=== PATIENT | female | born 1990 | race Caucasian/White ===

== ENCOUNTER 2017-06-22 15:07 | Emergency (ER) | payer MEDICAID ==
[2017-06-22] MEDS ORDERED: NS 1,000 ML IV ONE (15:40)
[2017-06-22] MEDS ORDERED: ONDANSETRON DISINTEGRATING 4 MG TAB PO ONE (15:40)
--- NOTE | 2017-06-22 15:44 | EDPHY ---
H & P Time Seen by Provider: 06/22/17 15:08 HPI/ROS: CHIEF COMPLAINT: Nausea, vomiting, body aches. HISTORY OF PRESENT ILLNESS: Patient states she was fine on Friday and then Friday morning woke up feeling bad. She was nauseous and achy and slept most of the day. This morning she woke up and had 4-5 episodes of vomiting over the course of the morning. Continued nausea and achiness. No further vomiting. Some headache, some chills but no fever. Still tired. No diarrhea, no dysuria. Last menstrual period was mid May. Also complaining of achiness to the low back bilaterally. No rashes. No upper respiratory symptoms. REVIEW OF SYSTEMS: Contents of 10 point review of systems otherwise negative except for what is mentioned in HPI. General Appearance: Alert, no distress. Eyes: Pupils equal and round no pallor or injection. ENT, Mouth: Mucous membranes moist. Oropharynx clear. No lymphadenopathy. Respiratory: There are no retractions, lungs are clear to auscultation. Cardiovascular: Regular rate and rhythm. Gastrointestinal: Abdomen is soft and nontender, no masses, bowel sounds hypoactive. No CVA tenderness. Neurological: Awake alert no focal neurologic deficits. Skin: Warm and dry, no rashes. Musculoskeletal: Neck is supple nontender. Extremities are symmetrical, full range of motion, no edema. Psychiatric: Patient is oriented X 3, emotional, labile, tearful at times. Medical/surgical history: History of PTSD. Melanoma, skin, excised. 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 Smoking Status: Never smoked Constitutional: Initial Vital Signs Temperature (C) 36.8 C 06/22/17 15:11 Heart Rate 65 06/22/17 15:11 Respiratory Rate 14 06/22/17 15:11 Blood Pressure 128/67 H 06/22/17 15:11 O2 Sat (%) 95 06/22/17 15:11 O2 Delivery Mode Room Air Allergies/Adverse Reactions: acetaminophen Allergy (Verified 06/22/17 15:18) Penicillins Allergy (Verified 06/22/17 15:18) Home Medications: Medication Instructions Recorded Ondansetron [Zofran Odt] 4 mg PO Q6-8PRN PRN 7 Days #10 06/22/17 tab.rapdis Zoloft 50mg (*) 06/22/17 traZODone 06/22/17 Medical Decision Making ED Course/Re-evaluation: IV fluids almost complete. Patient feeling better, trying p.o.'s. Able to give urine sample. Chemistry and CBC within normal limits. Differential Diagnosis: Differential diagnosis includes but is not limited to gastroenteritis, cyclic vomiting, urinary tract infection, acute abdomen. After evaluation suspect her nausea and vomiting may be related to exacerbation of her PTSD although viral gastroenteritis is also a possibility. Benign abdominal exam with no signs of peritonitis, surgical abdomen. Laboratory evaluations within normal limits. Not nor evidence of UTI, STD, torsion. Discussed oral rehydration therapy at home. Patient does have therapist to deal with her PTSD issues and declining other evaluation in the emergency department. Stable for discharge. - Data Points Laboratory Results: Laboratory Results 06/22/17 15:55 06/22/17 15:55 06/22/17 06/22/17 06/22/17 15:59 15:59 15:55 WBC RBC Hgb Hct MCV MCH MCHC RDW Plt Count MPV Neut % (Auto) Lymph % (Auto) [place] % (Auto) Eos % (Auto) Baso % (Auto) Nucleat RBC Rel Count Absolute Neuts (auto) Absolute Lymphs (auto) Absolute Monos (auto) Absolute Eos (auto) Absolute Basos (auto) Absolute Nucleated RBC Immature Gran % Immature Gran # Sodium 137 mEq/L mEq/L (135-145) Potassium 3.6 mEq/L mEq/L (3.5-5.2) Chloride 102 mEq/L mEq/L (97-110) Carbon Dioxide 24 mEq/l mEq/l (22-31) Anion Gap 11 mEq/L mEq/L (8-16) BUN 7 mg/dL mg/dL (7-23) Creatinine 0.8 mg/dL mg/dL (0.6-1.0) Estimated GFR > 60 Glucose 101 mg/dL H mg/dL (70-100) Calcium 9.5 mg/dL mg/dL (8.5-10.4) Urine Color YELLOW Urine Appearance CLEAR Urine pH 7.0 (5.0-7.5) Ur Specific [place] <= 1.005 (1.002-1.030) Urine Protein NEGATIVE (NEGATIVE) Urine Ketones NEGATIVE (NEGATIVE) Urine Blood NEGATIVE (NEGATIVE) Urine Nitrate NEGATIVE (NEGATIVE) Urine Bilirubin NEGATIVE (NEGATIVE) Urine Urobilinogen 0.2 EU EU (0.2-1.0) Ur Leukocyte Esterase NEGATIVE (NEGATIVE) Urine Glucose NEGATIVE (NEGATIVE) Urine Test NEGATIVE 06/22/17 15:55 WBC 5.66 10^3/uL 10^3/uL (3.80-9.50) RBC 4.87 10^6/uL 10^6/uL (4.18-5.33) Hgb 13.2 g/dL g/dL (12.6-16.3) Hct 39.1 % % (38.0-47.0) MCV 80.3 fL L fL (81.5-99.8) MCH 27.1 pg L pg (27.9-34.1) MCHC 33.8 g/dL g/dL (32.4-36.7) RDW 15.2 % % (11.5-15.2) Plt Count 251 10^3/uL 10^3/uL (150-400) MPV 8.7 fL fL (8.7-11.7) Neut % (Auto) 82.6 % H % (39.3-74.2) Lymph % (Auto) 11.0 % L % (15.0-45.0) [place] % (Auto) 4.9 % % (4.5-13.0) Eos % (Auto) 0.9 % % (0.6-7.6) Baso % (Auto) 0.4 % % (0.3-1.7) Nucleat RBC Rel Count 0.0 % % (0.0-0.2) Absolute Neuts (auto) 4.68 10^3/uL 10^3/uL (1.70-6.50) Absolute Lymphs (auto) 0.62 10^3/uL L 10^3/uL (1.00-3.00) Absolute Monos (auto) 0.28 10^3/uL L 10^3/uL (0.30-0.80) Absolute Eos (auto) 0.05 10^3/uL 10^3/uL (0.03-0.40) Absolute Basos (auto) 0.02 10^3/uL 10^3/uL (0.02-0.10) Absolute Nucleated RBC 0.00 10^3/uL 10^3/uL (0-0.01) Immature Gran % 0.2 % % (0.0-1.1) Immature Gran # 0.01 10^3/uL 10^3/uL (0.00-0.10) Sodium Potassium Chloride Carbon Dioxide Anion Gap BUN Creatinine Estimated GFR Glucose Calcium Urine Color Urine Appearance Urine pH Ur Specific [place] Urine Protein Urine Ketones Urine Blood Urine Nitrate Urine Bilirubin Urine Urobilinogen Ur Leukocyte Esterase Urine Glucose Urine Test Medications Given: Discontinued Medications Sodium Chloride (Ns) 1,000 mls @ 0 mls/hr IV EDNOW ONE; Wide Open PRN Reason: Protocol Stop: 06/22/17 15:41 Last Admin: 06/22/17 15:54 Dose: 1,000 mls Ondansetron HCl (Zofran Odt) 4 mg PO EDNOW ONE Stop: 06/22/17 15:41 Last Admin: 06/22/17 15:45 Dose: 4 mg Ondansetron HCl (Zofran Odt 4 Mg Prepack#2) 1 btl TAKEHOME EDNOW ONE Stop: 06/22/17 16:45 Last Admin: 06/22/17 16:57 Dose: 1 btl Departure - Departure Disposition: Home, Routine, Self-Care Clinical Impression: Nausea and vomiting Qualifiers: Vomiting type: unspecified Vomiting Intractability: non-intractable Qualified Code(s): R11.2 - Nausea with vomiting, unspecified Condition: Good Instructions: Acute Nausea and Vomiting (ED) Referrals: NONE *PRIMARY CARE P,. [Primary Care Provider] - As per Instructions Prescriptions: Ondansetron [Zofran Odt] 4 mg PO Q6-8PRN PRN 7 Days #10 tab.rapdis PRN Reason: nausea, vomiting
[2017-06-22 16:03] LABS: PLATELET COUNT 251 10^3/uL (150-400)
[2017-06-22 16:15] VITALS: O2SAT 94
[2017-06-22] MEDS ORDERED: ONDANSETRON 4MG PREPACK#2 BTL TAKEHOME ONE (16:44)
[2017-06-22 17:08] VITALS: BP 112/80; PULSE 75; RESP 12; TEMP 97.5
== END 2017-06-22 17:08 | disposition home or self-care (01) ==
LOC: CED 15:07
DX: R11.2 Nausea with vomiting, unspecified (principal); E86.9 Volume depletion, unspecified; Z85.820 Personal history of malignant melanoma of skin
CPT/HCPCS: 80048-PO; 81003-PO; 81025-PO; 85025-PO